=== PATIENT | female | born 1975 | race Caucasian/White ===

== ENCOUNTER → 2017-12-24 | Outpatient (CLI) | payer BC ==
[~2017-12-24] MED LIST: ARMOUR THYROID90 MG PO; ASPIR 8181 M1 PO; PROZAC40 MG PO; ZANTAC150 MG PO
[2017-12-24 16:19] LABS: APPEARANCE CLEAR/COLORLESS; CSF TUBE NUMBER TUBE #3
[2017-12-24 16:22] LABS: RED CELL COUNT 1 /MM^3 (0-1); WHITE CELL COUNT 2 /MM^3 (0-5)
[2017-12-24 16:48] LABS: CSF PROTEIN 41 mg/dL (15-45)
[2017-12-24 16:53] LABS: GLUCOSE, CSF 72 mg/dL (40-80)
== END | disposition home or self-care (01) ==
LOC: RAD 14:43
PROVIDERS: Psychiatry & Neurology Clinical Neurophysiology
PROC: 009U3ZZ Drainage of Spinal Canal, Percutaneous Approach (ICD-10-PCS; principal; 2017-12-24)
DX: R51 Headache (principal)
CPT/HCPCS: 62270; 77003; 82945; 83873 90; 83916 90; 84157; 86617 90; 86618 90; 87070; 87205; 89051